=== PATIENT | male | born 1955 | race Hispanic/Latino ===

== ENCOUNTER 2025-04-09 08:57 | Day surgery (SDC) | payer MEDICARE, OTHER ==
[2025-04-07 09:56] LABS: BASOPHILS % 1.6 % (0.0-1.0); EOSINOPHILS % 2.6 % (0.0-6.0); LYMPHOCYTES % 12.5 % (18.0-39.1); MONOCYTES % 10.4 % (4.4-11.3); NEUTROPHILS % 72.3 % (38.7-80.0); RED CELL DISTRIBUTION WIDTH 14.8 % (11.7-14.4)
[2025-04-07 10:17] LABS: CHOL/HDL RATIO 2.6 (3.9-4.7); EST GLOMERULAR FILTRATION RATE 7.0 ML/MIN (>=60); LDL CHOLESTEROL 54.0 MG/DL (60-130)
[2025-04-09] VITALS (7 sets, daily range): BP systolic 140–150; BP diastolic 80–85; PULSE 70–73; RESP 11–20; TEMP 97.1–97.8; O2SAT 99–100
[~2025-04-09] VITALS: Ht 175.3 cm; Wt 97.1 kg
[~2025-04-09 08:57] MED LIST: ASPIRIN EC81 MG PO; COREG12.5 MG PO; ELIQUIS5 MG PO; GLUCOTROL XL10 MG PO; HYDRALAZINE HCL50 MG PO; LEVOTHYROXINE75 MCG PO; LIPITOR20 MG PO
[2025-04-09] MEDS ORDERED: LIDOCAINE HCL 2% LOCAL 20 ML VIAL ONE (11:01)
[2025-04-09] MEDS ORDERED: SODIUM CHLORIDE 0.9% 1000ML 1,000 ML ONE (11:01)
[2025-04-09] MEDS ORDERED: FENTANYL CITRATE/PF 100MCG/2 ML INJ ONE (11:02)
[2025-04-09] MEDS ORDERED: SODIUM CHLORIDE 0.9% 500ML 1,000 ML ONE (11:02)
[2025-04-09] MEDS ORDERED: MIDAZOLAM HCL 2 MG/2 ML VIAL ONE (11:02)
== END 2025-04-09 13:15 | disposition home or self-care (01) ==
LOC: CATH LAB 08:57
PROVIDERS: ATTEND Internal Medicine Cardiovascular Disease
DX: I27.20 Pulmonary hypertension, unspecified (principal); I13.11 Hypertensive heart and chronic kidney disease without heart failure, with stage 5 chronic kidney disease, or end stage renal disease; E11.22 Type 2 diabetes mellitus with diabetic chronic kidney disease; N18.6 End stage renal disease; E78.2 Mixed hyperlipidemia; Z99.2 Dependence on renal dialysis; Z95.0 Presence of cardiac pacemaker; Z79.84 Long term (current) use of oral hypoglycemic drugs; Z79.82 Long term (current) use of aspirin; Z79.890 Hormone replacement therapy; Z79.01 Long term (current) use of anticoagulants; Z87.891 Personal history of nicotine dependence; Z68.33 Body mass index [BMI] 33.0-33.9, adult; Z01.812 Encounter for preprocedural laboratory examination
CPT/HCPCS: 36415 ×2; 76937; 80053; 80061; 82948; 83880; 85025; 93503; C1769 ×2; J2003; J2250; J3010; J7030; J7040; 93451; 99152; 99153